=== PATIENT | male | born 1990 ===

== ENCOUNTER 2025-02-09 00:50 | Emergency (ER) | payer SELFPAY ==
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
[2025-02-09 00:51] VITALS: BP 157/102; PULSE 94; RESP 16; TEMP 36.8; O2SAT 100
--- NOTE | 2025-02-09 02:22 | PC.NURSE ---
1st call no answer
== END 2025-02-09 02:00 | disposition left against medical advice (07) ==
LOC: ANHED 02:57
PROVIDERS: Emergency Provider Student in an Organized Health Care Education/Training Program
DX: S49.91XA Unspecified injury of right shoulder and upper arm, initial encounter (principal); V49.40XA Driver injured in collision with unspecified motor vehicles in traffic accident, initial encounter
CPT/HCPCS: 73000; 73030; 99199